=== PATIENT | female | born 1995 | race African-American/Black ===

== ENCOUNTER 2018-08-20 16:22 | Emergency (ER) | payer OTHER ==
--- NOTE | 2018-08-20 16:48 | PDOC ---
Rapid Medical Evaluation Time Seen by Provider: 08/20/18 16:46 Medical Evaluation: Allergies Allergy/AdvReac Type Severity Reaction Status Date / Time No Known Allergies Allergy Verified 08/20/18 16:45 08/20/18 16:46 I have performed a brief in-person evaluation of this patient. The patient presents with a chief complaint of:, ~10 weeks w/ no issues w/ preg so far, here w/ n/v x 2 weeks and now sent in by her OB for IVF. Pt states she was prescribed rx for anti-emetics today but hasn't filled it yet Pertinent physical exam findings:stable I have ordered the following:labs The patient will proceed to the ED for further evaluation. Discharge Disposition - Diagnosis Hyperemesis - Referrals - Patient Instructions - Post Discharge Activity
[2018-08-20 16:51] VITALS: BP 130/58; PULSE 80; TEMP 98.1; BMI 22.6
[2018-08-20] MEDS ORDERED: ONDANSETRON 4 MG/2 ML VIAL IVPUSH ONE (17:26)
[2018-08-20] MEDS ORDERED: SODIUM CHLORIDE 1,000 ML IV STA ×2 (17:26→19:34)
--- NOTE | 2018-08-20 17:30 | PDOC ---
History of Present Illness - General Chief Complaint: Nausea/Vomiting Stated Complaint: DOCTOR SENT PATIENT Time Seen by Provider: 08/20/18 16:46 History Source: Patient Exam Limitations: No Limitations - History of Present Illness Initial Comments: 08/20/18 17:39 Patient is a 23-year-old female, currently 10 weeks who presents to the ER for hyperemesis. Patient states she's been vomiting approximately 10 times day for the last 2 weeks. She was seen by her GIFT SHOP CLERK today who referred her to the ER for lab work and anti-enemics given her hyperemesis. Patient is to nausea at this time. Denies fever, chills, abdominal pain, shortness of breath, difficulty breathing, frequency, urgency and hematuria. Patient states she has not had any vaginal bleeding. Past History - Travel Traveled outside of the country in the last 30 days: No Close contact w/someone who was outside of country & ill: No - Past Medical History Allergies/Adverse Reactions: Allergies Allergy/AdvReac Type Severity Reaction Status Date / Time No Known Allergies Allergy Verified 08/20/18 16:45 COPD: No - Immunization History Immunization Up to Date: Yes - Suicide/Smoking/Psychosocial Hx Smoking History: Never smoked Hx Alcohol Use: No Drug/Substance Use Hx: No Review of Systems - Review of Systems Able to Perform ROS?: Yes Comments:: 08/20/18 17:40 CONSTITUTIONAL: Absent: fever, chills, diaphoresis, generalized weakness, malaise, loss of appetite HEENT: Absent: rhinorrhea, nasal congestion, throat pain, throat swelling, difficulty swallowing, mouth swelling, ear pain, eye pain, visual Changes CARDIOVASCULAR: Absent: chest pain, loss of consciousness, palpitations, irregular heart rate, peripheral edema RESPIRATORY: Absent: cough, shortness of breath, dyspnea with exertion, orthopnea, wheezing, stridor, hemoptysis GASTROINTESTINAL: Present: nausea and vomiting Absent: abdominal pain, abdominal distension, diarrhea, constipation, melena, hematochezia GENITOURINARY: Absent: dysuria, frequency, urgency, hesitancy, hematuria, flank pain, genital pain MUSCULOSKELETAL: Absent: myalgia, arthralgia, joint swelling SKIN: Absent: rash, itching, pallor HEMATOLOGIC/IMMUNOLOGIC: Absent: easy bleeding, easy bruising, lymphadenopathy, frequent infections ENDOCRINE: Absent: unexplained weight gain, unexplained weight loss, heat intolerance, cold intolerance NEUROLOGIC: Absent: headache, focal weakness or paresthesias, dizziness, unsteady gait, seizure, mental status changes, bladder or bowel incontinence PSYCHIATRIC: Absent: anxiety, depression, suicidal or homicidal ideation, hallucinations. Is the patient limited Romanian proficient: No *Physical Exam - Vital Signs Last Vital Signs Temp Pulse Resp BP Pulse Ox 98.1 F 80 18 130/58 L 100 08/20/18 16:46 08/20/18 16:46 08/20/18 16:46 08/20/18 16:46 08/20/18 16:46 - Physical Exam Comments: 08/20/18 17:40 GENERAL: Well developed, well nourished. Awake and alert. No acute distress. HEENT: Normocephalic, atraumatic. PERRLA, EOMI. No conjunctival pallor. Sclera are non- icteric. Moist mucous membranes. Oropharynx is clear. NECK: Supple. Full ROM. No JVD. Carotid pulses 2+ and symmetric, without bruits. No thyromegaly. No lymphadenopathy. CARDIOVASCULAR: Regular rate and rhythm. No murmurs, rubs, or gallops. Distal pulses are 2+ and symmetric. PULMONARY: No evidence of respiratory distress. Lungs clear to auscultation bilaterally. No wheezing, rales or rhonchi. ABDOMINAL: Soft. Non-tender. Non-distended. No rebound or guarding. No organomegaly. Normoactive bowel sounds. MUSCULOSKELETAL Normal range of motion at all joints. No bony deformities or tenderness. No CVA tenderness. EXTREMITIES: No cyanosis. No clubbing. No edema. No calf tenderness. SKIN: Warm and dry. Normal capillary refill. No rashes. No jaundice. NEUROLOGICAL: Alert, awake, appropriate. Cranial nerves 2-12 intact. No deficits to light touch and temperature in face, upper extremities and lower extremities. No motor deficits in the in face, upper extremities and lower extremities. Normoreflexic in the upper and lower extremities. Normal speech. Toes are down- going bilaterally. Gait is normal without ataxia. PSYCHIATRIC: Cooperative. Good eye contact. Appropriate mood and affect. Moderate Sedation - Procedure Monitoring Vital Signs: Procedure Monitoring Vital Signs Temperature 98.1 F 08/20/18 16:46 Pulse Rate 80 08/20/18 16:46 Respiratory Rate 18 08/20/18 16:46 Blood Pressure 130/58 L 08/20/18 16:46 O2 Sat by Pulse Oximetry (%) 100 08/20/18 16:46 Medical Decision Making - Medical Decision Making 08/20/18 17:41 Patient is a 23-year-old female, who presents to the ER today for hyperemesis. On exam patient with no abdominal tenderness. Denies vaginal bleeding We'll order basic labs, IV fluids and Zofran for symptomatic treatment. Reevaluate *DC/Admit/Observation/Transfer Diagnosis at time of Disposition: Hyperemesis - Referrals - Patient Instructions - Post Discharge Activity
[2018-08-20] MEDS ORDERED: ONDANSETRON 4 MG/2 ML VIAL ONE (18:29)
[2018-08-20 18:53] LABS: BASO % 0.5 % (0-2.0); EOS % 0.5 % (0-4.5); HEMATOCRIT 37.5 % (32.4-45.2); HEMOGLOBIN 12.9 GM/dL (10.7-15.3); LYMPH % 23.7 % (8-40); MCH 29.9 pg (25.7-33.7); MCHC 34.4 g/dl (32.0-36.0); MEAN CELL VOLUME 87.1 fl (80-96); MONO % 7.5 % (3.8-10.2); NEUT % 67.8 % (42.8-82.8); PLATELET COUNT 175 K/MM3 (134-434); RBC 4.31 M/mm3 (3.60-5.2); RDW 13.6 % (11.6-15.6); WHITE BLOOD COUNT 9.5 K/mm3 (4.0-10.0)
[2018-08-20 19:48] LABS: ALBUMIN 4.3 g/dl (3.4-5.0); ALK PHOS 59 U/L (45-117); ANION GAP 9 MMOL/L (8-16); BILIRUBIN,TOTAL 0.5 mg/dL (0.2-1); BLOOD UREA NITROGEN 4 mg/dL (7-18); CALCIUM 9.8 mg/dL (8.5-10.1); CHLORIDE 105 mmol/L (98-107); CO2 22 mmol/L (21-32); CREATININE 0.4 mg/dL (0.55-1.3); GLUCOSE,RANDOM 79 mg/dL (74-106); POTASSIUM 3.6 mmol/L (3.5-5.1); SGOT/AST 14 U/L (15-37); SGPT/ALT 15 U/L (13-61); SODIUM 136 mmol/L (136-145); TOT PROT 7.1 g/dl (6.4-8.2)
--- NOTE | 2018-08-20 20:09 | PDOC ---
*Physical Exam - Vital Signs Last Vital Signs Temp Pulse Resp BP Pulse Ox 98.1 F 80 18 130/58 L 100 08/20/18 16:46 08/20/18 16:46 08/20/18 16:46 08/20/18 16:46 08/20/18 16:46 ED Treatment Course - LABORATORY CBC & Chemistry Diagram: 08/20/18 18:40 08/20/18 18:40 - ADDITIONAL ORDERS Additional order review: Laboratory Results 08/20/18 18:40 Sodium 136 Potassium 3.6 Chloride 105 Carbon Dioxide 22 Anion Gap 9 BUN 4 L Creatinine 0.4 L Creat Clearance w eGFR > 60 Random Glucose 79 Calcium 9.8 Total Bilirubin 0.5 AST 14 L ALT 15 Alkaline Phosphatase 59 Total Protein 7.1 Albumin 4.3 08/20/18 18:40 RBC 4.31 MCV 87.1 MCHC 34.4 RDW 13.6 MPV 10.0 Neutrophils % 67.8 Lymphocytes % 23.7 Monocytes % 7.5 Eosinophils % 0.5 Basophils % 0.5 - Medications Given in the ED: ED Medications Discontinued Medications Generic Name Dose Route Start Last Admin Trade Name Freq PRN Reason Stop Dose Admin Sodium Chloride 1,000 mls @ 1,000 mls/hr 08/20/18 17:26 08/20/18 18:40 Normal Saline - IV 08/20/18 18:25 1,000 mls/hr ASDIR STA Administration Ondansetron HCl 4 mg 08/20/18 17:26 08/20/18 18:40 Zofran Injection IVPUSH 08/20/18 17:27 4 mg ONCE ONE Administration Medical Decision Making - Medical Decision Making Patient signed out to me by GINNY Theodore Labs reviewed and unremarkable Patient appears well and tolerating PO Patient already had nausea meds prescribed by her VALVE LAPPER today (unable to recall names; one was Vitamin B6); states will pick them up Stable for d/c 08/20/18 20:06 *DC/Admit/Observation/Transfer Diagnosis at time of Disposition: Hyperemesis - Discharge Dispostion Disposition: HOME Condition at time of disposition: Stable Decision to Admit order: No - Referrals - Patient Instructions Printed Discharge Instructions: DI for Hyperemesis Gravidarum Additional Instructions: Thank you for choosing [facility]. It was a pleasure taking care of you. Please take the nausea meds prescribed by your FINAL FINISHER FORGING DIES Continue follow-up with your FINAL FINISHER FORGING DIES Return to the Emergency Department if your symptoms worsen or persist, you have fever, shortness of breath, chest pain, severe abdominal pain, vomiting, vaginal bleeding or other concerning symptoms. - Post Discharge Activity
== END 2018-08-20 21:00 | disposition home or self-care (01) ==
LOC: JER 16:22
PROC: 3E0337Z Introduction of Electrolytic and Water Balance Substance into Peripheral Vein, Percutaneous Approach (ICD-10-PCS; principal; 2018-08-20)
DX: O26.891 Other specified pregnancy related conditions, first trimester (principal); O21.0 Mild hyperemesis gravidarum; Z3A.10 10 weeks gestation of pregnancy
CPT/HCPCS: 36415; 80053; 85025; 99283-25; J7030

== ENCOUNTER 2018-09-05 13:44 | Emergency (ER) | payer OTHER ==
[2018-09-05 13:54] VITALS: BP 107/68; PULSE 94; TEMP 98.3; BMI 21.9
--- NOTE | 2018-09-05 14:16 | PDOC ---
History of Present Illness - General Chief Complaint: Nausea/Vomiting Stated Complaint: SENT BY PCP Time Seen by Provider: 09/05/18 14:16 - History of Present Illness Initial Comments: 09/05/18 15:05 23 year old woman with no past medical history A0, LNMP 06/06/18 who presents with nbnb vomiting for 1 month that occurs throughout the day, sometimes worse in the morning and every time after she eats. She reports that she can sometimes vomit 15x a day. She saw her OBGYN Dr. Ballesteros yesterday and had an ultrasound done, but she was told to come to the ED for hydration. She given a prescription for Reglan but reports that the medication did not help her. She denies fevers, headaches, diarrhea, abdominal pain, dysuria, hematuria , back pain, vaginal bleeding, vaginal discharge. She has no other complaints at bedside. 09/05/18 15:05 Past History - Past Medical History Allergies/Adverse Reactions: Allergies Allergy/AdvReac Type Severity Reaction Status Date / Time No Known Allergies Allergy Verified 08/20/18 16:45 Home Medications: Ambulatory Orders Doxylamine Succinate/Vit B6 [Ashlyn Tapia 10-10 mg Tablet] 1 each PO DAILY #30 tablet. 09/05/18 COPD: No - Reproductive History (#): 1 Para: 0 Therapeutic (s) & number: No Spontaneous : 0 - Immunization History Immunization Up to Date: Yes - Suicide/Smoking/Psychosocial Hx Smoking History: Never smoked Hx Alcohol Use: No Drug/Substance Use Hx: No *Physical Exam - Vital Signs Last Vital Signs Temp Pulse Resp BP Pulse Ox 98.3 F 94 H 18 107/68 100 09/05/18 13:52 09/05/18 13:52 09/05/18 13:52 09/05/18 13:52 09/05/18 13:52 - Physical Exam Comments: 09/05/18 15:15 unremarkable Moderate Sedation - Procedure Monitoring Vital Signs: Procedure Monitoring Vital Signs Temperature 98.3 F 09/05/18 13:52 Pulse Rate 94 H 09/05/18 13:52 Respiratory Rate 18 09/05/18 13:52 Blood Pressure 107/68 09/05/18 13:52 O2 Sat by Pulse Oximetry (%) 100 09/05/18 13:52 ED Treatment Course - LABORATORY CBC & Chemistry Diagram: 09/05/18 14:30 09/05/18 14:30 Medical Decision Making - Medical Decision Making 09/05/18 15:15 ED Course: consider molar vs iup vs ectopic cbc, cmp, tvus, beta hcg *DC/Admit/Observation/Transfer Diagnosis at time of Disposition: Vomiting - Discharge Dispostion Disposition: HOME Condition at time of disposition: Stable Decision to Admit order: No - Referrals Referrals: Bel Donaldson [Primary Care Provider] - - Patient Instructions Printed Discharge Instructions: DI for Vomiting -- Adult Additional Instructions: You were seen in the ED for complaints of vomiting in . In the ED you were evaluated with labwork and imaging. Your results showed 13 week 4 days intrauterine with FHR 144bpm. There does not appear to be an acute need for immediate hospitalization. You are advised to follow up with your Primary Care Physician within 1 week. You were given a prescription for Diclegis anti-nausea medication and are advised to take medications as prescribed. Return to the ED immediately if you experience worsening nausea or vomiting, dizziness, lethargy, abdominal pain, vaginal bleeding or discharge or fevers. - Post Discharge Activity
[2018-09-05] MEDS ORDERED: METOCLOPRAMIDE HCL INJECTION 10 MG/2 ML VIAL IVPUSH ONE (14:17)
[2018-09-05] MEDS ORDERED: SODIUM CHLORIDE 1,000 ML IV SCH (14:30)
[2018-09-05] MEDS ORDERED: METOCLOPRAMIDE HCL INJECTION 10 MG/2 ML VIAL ONE (14:33)
--- NOTE | 2018-09-05 15:14 | PDOC ---
Attending Attestation - HPI HPI: 09/05/18 15:41 The patient is a 23-year-old female A0, currently, 13 weeks , with no significant past medical history presents to the emergency department with nausea and vomiting. The patient reports shes been having one month of nausea and NBNB vomiting, that's aggravated after eating and at times worse in the morning. The patient reports follow up with Dr. Ballesteros (DIET SUPERVISOR), where she was told to follow up at the ER for hydration. The patient reports she was prescribed Reglan, reports taking the medication, without relief. Denies fever, chills, abdominal pain, urinary symptoms, vaginal bleeding or discharge. Allergies: NKDA DIET SUPERVISOR: Dr. Ballesteros. - Physicial Exam PE: 09/05/18 15:24 GENERAL: The patient is in no acute distress. HEAD: Normal with no signs of trauma. EYES: PERRLA, EOMI, sclera anicteric, conjunctiva clear. ENT: Ears normal, nares patent, oropharynx clear without exudates. Moist mucous membranes. NECK: Normal range of motion, supple without lymphadenopathy, JVD, or masses. LUNGS: Breath sounds equal, clear to auscultation bilaterally. No wheezes, and no crackles. HEART:Regular rate and rhythm, normal S1 and S2 without murmur, rub or gallop. ABDOMEN: Soft, nontender, normoactive bowel sounds. No guarding, no rebound. No masses palpable. EXTREMITIES: Normal range of motion, no edema. No clubbing or cyanosis. No erythema, or tenderness. NEUROLOGICAL: Cranial nerves II through XII grossly intact. Normal speech. No focal neurological deficits. MUSCULOSKELETAL: Back non-tender to palpation, no CVA tenderness SKIN: Warm, Dry, normal turgor, no rashes or lesions noted. - Medical Decision Making 09/05/18 15:42 Documentation prepared by Flor Ochoa, acting as medical csr for Princess Pena MD. <Flor Ochoa - Last Filed: 09/05/18 15:41> - Resident Resident Name: Teresita Atkins - ED Attending Attestation I have performed the following: I have examined & evaluated the patient, The case was reviewed & discussed with the resident, I agree w/resident's findings & plan, Exceptions are as noted - Medical Decision Making 09/05/18 15:47 23 yo F presenting to the ER with nausea and vomiting Seen by OB yesterday where assessment of was reportedly normal Pt was given reglan which she states has not helped No fevers or chills No diarrhea Likely Hyperemesis, possibly biliary colic or gastroenteritis Will do: Labs US ICF Reglan Consider D51/2 NS 09/05/18 15:53 Laboratory Tests 09/05/18 09/05/18 14:30 14:30 WBC 9.5 Hgb 13.3 Hct 39.0 Plt Count 189 Sodium 134 L Potassium 3.1 L Chloride 102 Carbon Dioxide 23 BUN 4 L Creatinine 0.4 L Beta HCG, Quant [id number] Major <Princess Pena - Last Filed: 09/06/18 09:28>
[2018-09-05 15:34] LABS: BASO % 0.3 % (0-2.0); EOS % 0.2 % (0-4.5); HEMOGLOBIN 13.3 GM/dL (10.7-15.3); LYMPH % 17.7 % (8-40); MCH 29.7 pg (25.7-33.7); MCHC 34.1 g/dl (32.0-36.0); MEAN PLT VOLUME 10.4 fl (7.5-11.1); MONO % 7.2 % (3.8-10.2); NEUT % 74.6 % (42.8-82.8); PLATELET COUNT 189 K/MM3 (134-434); RBC 4.48 M/mm3 (3.60-5.2); RDW 13.3 % (11.6-15.6); WHITE BLOOD COUNT 9.5 K/mm3 (4.0-10.0)
[2018-09-05 15:48] LABS: ALBUMIN 4.3 g/dl (3.4-5.0); ALK PHOS 61 U/L (45-117); ANION GAP 9 MMOL/L (8-16); BILIRUBIN,TOTAL 0.8 mg/dL (0.2-1); BLOOD UREA NITROGEN 4 mg/dL (7-18); CALCIUM 9.2 mg/dL (8.5-10.1); CHLORIDE 102 mmol/L (98-107); CO2 23 mmol/L (21-32); CREATININE 0.4 mg/dL (0.55-1.3); GLUCOSE,RANDOM 84 mg/dL (74-106); POTASSIUM 3.1 mmol/L (3.5-5.1); SGOT/AST 25 U/L (15-37); SGPT/ALT 28 U/L (13-61); SODIUM 134 mmol/L (136-145); TOT PROT 7.6 g/dl (6.4-8.2)
[2018-09-05] MEDS ORDERED: POTASSIUM CHLORIDE TABS 10 MEQ TABLET.ER (FP) PO ONE ×2 (16:35→18:18)
[2018-09-05] MEDS ORDERED: POTASSIUM CHLORIDE TABS 20 MEQ TABLET.ER (FP) PO ONE (17:53)
[2018-09-05] MEDS ORDERED: DEXTROSE 5%-NORMAL SALINE 1,000 ML IV SCH (18:00)
== END 2018-09-05 18:58 | disposition home or self-care (01) ==
LOC: JER 13:44
PROC: 3E0337Z Introduction of Electrolytic and Water Balance Substance into Peripheral Vein, Percutaneous Approach (ICD-10-PCS; principal; 2018-09-05)
DX: O26.891 Other specified pregnancy related conditions, first trimester (principal); O21.0 Mild hyperemesis gravidarum; Z3A.13 13 weeks gestation of pregnancy
CPT/HCPCS: 36415; 76801-TC; 80053; 84702; 85025; 99281-25; J7030

== ENCOUNTER 2018-09-17 21:28 | Emergency (ER) | payer OTHER ==
[2018-09-17] MEDS ORDERED: SODIUM CHLORIDE 0.9% 500 ML INFUS.BAG IV ONE (21:55)
[2018-09-17] MEDS ORDERED: ONDANSETRON 4 MG/2 ML VIAL IVPB ONE (21:55)
[2018-09-17 21:58] VITALS: BP 90/62; TEMP 97.6
--- NOTE | 2018-09-17 21:58 | PDOC ---
Rapid Medical Evaluation Chief Complaint: Nausea/Vomiting Time Seen by Provider: 09/17/18 21:54 Medical Evaluation: Allergies Allergy/AdvReac Type Severity Reaction Status Date / Time No Known Allergies Allergy Verified 08/20/18 16:45 09/17/18 21:55 23 year old female 15 weeks unable to tolerate anything by mouth due to hyperemesis. denies abdominal pain, fever/ chills, urianry symptoms. Pe: patient alert tachycardic, dry mucosa A; dehydration likely hyperemesis gravidum P; labs IVF zofran patient to the ER for further management of care. Discharge Disposition - Diagnosis Hyperemesis, Vomiting - Referrals - Patient Instructions - Post Discharge Activity
[2018-09-17] MEDS ORDERED: DEXTROSE 5%-LACTATED RINGERS 1,000 ML IV SCH (22:30)
[2018-09-17] MEDS ORDERED: ONDANSETRON 4 MG/2 ML VIAL ONE (22:40)
--- NOTE | 2018-09-17 22:40 | PDOC ---
History of Present Illness - General Chief Complaint: Nausea/Vomiting Stated Complaint: NAUSEA Time Seen by Provider: 09/17/18 21:54 - History of Present Illness Initial Comments: Madison Soto is an otherwise health 23yo woman who presents with severe nausea and vomiting for "months." She states that she has been unable to keep anything down for multiple days despite using antiemetic medications at home. Per Ms Soto, she follows with Dr Ballesteros who recommended a "zofran pump" but she is concerned about side effects. She reports that she has tried multiple medications at home without relief of her symptoms including B6/doxylamine and reglan. She reports that she has lost approximately 25lb during her due to persistent vomiting. The vomiting is non-bloody, non-bilious and unchanged from previous episodes. She denies any recent change in bowel habits, fever/chills, abdominal pain, vaginal discharge or vaginal bleeding. She most recently saw her OB, Dr Ballesteros, about 2 weeks ago and was seen in the ED on 09/05 with similar symptoms. Past History - Past Medical History Allergies/Adverse Reactions: Allergies Allergy/AdvReac Type Severity Reaction Status Date / Time No Known Allergies Allergy Verified 09/17/18 21:58 Home Medications: Ambulatory Orders Doxylamine Succinate/Vit B6 [Ashlyn Tapia 10-10 mg Tablet] 1 each PO DAILY #30 tablet. 09/05/18 COPD: No - Reproductive History (#): 1 Para: 0 Therapeutic (s) & number: No Spontaneous : 0 - Immunization History Immunization Up to Date: Yes - Suicide/Smoking/Psychosocial Hx Smoking History: Never smoked Have you smoked in the past 12 months: No Information on smoking cessation initiated: No Hx Alcohol Use: No Drug/Substance Use Hx: No Review of Systems - Review of Systems Comments:: General: No fevers, no chills, +recent weight loss approx 25lb, no malaise HEENT: No changes in vision, no changes in hearing, no congestion, no sore throat CV: No chest pain, no palpitations, no LE edema Pulm: No SOB, no cough, no wheezing GI: +frequent nausea/vomiting. No change in bowel habits, no melena : No frequency, no urgency, no dysuria Musc: No back pain, no joint swelling, no recent injury Skin: No rash, no lesions, no erythema Endo: No excessive thirst, no heat/cold intolerance Heme: No unusual bruising or bleeding, no swollen glands Neuro: No syncope, no numbness/tingling, no focal weakness Vasc: No claudication Psych: No recent change in mood, no SI or HI *Physical Exam - Vital Signs Last Vital Signs Temp Pulse Resp BP Pulse Ox 97.6 F 146 H 24 H 90/62 100 09/17/18 21:56 09/17/18 21:56 09/17/18 21:56 09/17/18 21:56 09/17/18 21:56 - Physical Exam Comments: General: Comfortable, no acute distress HEENT: PERRL, EOMI, MMM, voice normal, normal neck ROM, no LAD Cards: RRR, no murmur appreciated Pulm: Comfortable on room air, clear to auscultation bilaterally Abd: Soft, nontender, nondistended. Not obviously . Ext: Atraumatic. No LE edema. ROM intact. Strength 5/5 and equal bilaterally Vasc: Extremities WWP Skin: Normal color, no rashes or lesions Neuro: A&Ox3, CN grossly intact, normal speech, motor/sensory grossly intact and symmetric Psych: Mood appropriate to situation Moderate Sedation - Procedure Monitoring Vital Signs: Procedure Monitoring Vital Signs Temperature 97.6 F 09/17/18 21:56 Pulse Rate 146 H 09/17/18 21:56 Respiratory Rate 24 H 09/17/18 21:56 Blood Pressure 90/62 09/17/18 21:56 O2 Sat by Pulse Oximetry (%) 100 09/17/18 21:56 ED Treatment Course - LABORATORY CBC & Chemistry Diagram: 09/17/18 22:30 09/17/18 22:30 Medical Decision Making - Medical Decision Making 09/17/18 22:37 Madison Soto is an otherwise healthy 23yo woman at 15wks gestation who presents with tachycardia and numerous episodes of nausea/vomiting. She states that she has had hyperemesis throughout her , but she feels worse than normal today and has been unable keep anything down. - Afebrile, no other symptoms than n/v for which she has been seen previously. Tachycardia most likely due to dehydration. Will check EKG - Will give 1L D5-LR bolus, zofran for symptoms. CBC, CMP, mag, phos, UA for evaluation - IUP previously confirmed at previous visit 09/17/18 23:50 - EKG completed, shows NSR w/ HR 93. No abnormalities - Labs reviewed. Notable for potassium 2.9. Will replete orally - Reports continued nausea. States she vomited in the ED; however her nurse reports seeing clear saliva in her emesis bag but no vomiting. Will give reglan IV for nausea with 25mg IV benedryl 09/18/18 01:38 - Additional IV potassium ordered for repletion. - Pt sleeping comfortably. Will reassess when IV potassium is completed. 09/18/18 04:03 - Feels better after reglan, zofran, benadryl - Was able to tolerate apple juice in the ED without additional emesis - Will d/c home with OB follow up. Discussed with Dr Pineda. Buffy Cisneros PGY1 *DC/Admit/Observation/Transfer Diagnosis at time of Disposition: Vomiting - Discharge Dispostion Disposition: HOME Condition at time of disposition: Stable Decision to Admit order: No - Referrals Referrals: Bel Donaldson [Primary Care Provider] - Elaina Ballesteros DO [Staff Physician] - - Patient Instructions Printed Discharge Instructions: DI for Hyperemesis Gravidarum Additional Instructions: Discharge Instructions: - You were seen in the emergency department for continued vomiting during . Your symptoms improved with medications and IV fluids - Continue to take all of your prescribed medications at home. You indicated that you have been given several medications to try at home. You may wish to check with your manager secondary to see if you can take these medications at the same time if you are not having improvement in your symptoms from using only one. - Make sure you are staying hydrated. Taking small sips throughout the day can be more effective and easier to tolerate than drinking large glasses all at once - Make an appointment to follow up with your manager secondary within the next 1-2 days if you have continued nausea/vomiting. - Seek medical care if you are unable to tolerate any food or drinks by mouth, if you stop urinating, you become lightheaded, or you have any medical emergency., - Post Discharge Activity
[2018-09-17 22:41] LABS: BASO % 0.5 % (0-2.0); EOS % 0.4 % (0-4.5); HEMATOCRIT 44.1 % (32.4-45.2); HEMOGLOBIN 15.3 GM/dL (10.7-15.3); MCH 29.9 pg (25.7-33.7); MCHC 34.6 g/dl (32.0-36.0); MEAN CELL VOLUME 86.5 fl (80-96); MEAN PLT VOLUME 9.6 fl (7.5-11.1); MONO % 7.5 % (3.8-10.2); NEUT % 75.6 % (42.8-82.8); PLATELET COUNT 205 K/MM3 (134-434); RDW 13.5 % (11.6-15.6); WHITE BLOOD COUNT 8.6 K/mm3 (4.0-10.0)
[2018-09-17 22:59] LABS: MAGNESIUM 2.1 mg/dL (1.8-2.4); PHOSPHOROUS 2.9 mg/dL (2.5-4.9)
[2018-09-17 23:05] LABS: ALBUMIN 4.6 g/dl (3.4-5.0); ALK PHOS 71 U/L (45-117); ANION GAP 12 MMOL/L (8-16); BILIRUBIN,TOTAL 0.6 mg/dL (0.2-1); BLOOD UREA NITROGEN 3 mg/dL (7-18); CALCIUM 9.7 mg/dL (8.5-10.1); CHLORIDE 98 mmol/L (98-107); CO2 25 mmol/L (21-32); CREATININE 0.5 mg/dL (0.55-1.3); GLUCOSE,RANDOM 94 mg/dL (74-106); LIPASE 197 U/L (73-393); SGOT/AST 44 U/L (15-37); SGPT/ALT 41 U/L (13-61); SODIUM 135 mmol/L (136-145); TOT PROT 8.1 g/dl (6.4-8.2)
--- NOTE | 2018-09-17 23:06 | PDOC ---
Attending Attestation - HPI HPI: 09/18/18 00:03 The patient is a 23 year old female( , 15 weeks ) with no significant past medical history who presents to the emergency department with nausea and hyperemesis since earlier today. The patient denies any other symptoms or complaints. <Le Santana - Last Filed: 09/18/18 00:03> - Resident Resident Name: Buffy Cisneros - ED Attending Attestation I have performed the following: I have examined & evaluated the patient, The case was reviewed & discussed with the resident, I agree w/resident's findings & plan, Exceptions are as noted - Physicial Exam PE: 09/17/18 23:05 Patient is awake and alert, well-nourished, tachycardic and borderline hypotensive on arrival. 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 Initial evaluation patient noted to be borderline hypotensive and tachycardic. I suspect hypovolemia. Sepsis is unlikely at this time. We'll administer D5 LR, we'll administer Zofran for antiemesis. We'll obtain CBC/CMP/magnesium/UA. Will reassess. 09/18/18 00:38 Patient resting comfortably. Heart rate has decreased from 146 to 93. Potassium is noted to be 2.9. There is no evidence of QTC prolongation EKG. We'll continue with IV fluids and potassium supplementation by mouth. <Prosper Pineda - Last Filed: 09/18/18 00:39> Attestations - Attestations 09/18/18 00:04 Documentation prepared by Le Santana, acting as emergency medical dispatcher for Prosper Pineda MD. <Le Santana - Last Filed: 09/18/18 00:03>
[2018-09-17 23:10] LABS: POTASSIUM 2.9 mmol/L (3.5-5.1)
[2018-09-17] MEDS ORDERED: POTASSIUM CHLORIDE ORAL LIQUID 20 MEQ/15 ML PO ONE (23:22)
[2018-09-17] MEDS ORDERED: METOCLOPRAMIDE HCL INJECTION 10 MG/2 ML VIAL IVPUSH ONE (23:56)
[2018-09-18] MEDS ORDERED: POTASSIUM CHLORIDE ORAL LIQUID 20 MEQ/15 ML ONE (00:09)
[2018-09-18] MEDS ORDERED: KCL 10 MEQ IVPB 10 MEQ/100 ML INFUS.BAG IVPB ONE ×2 (01:21→01:46)
[2018-09-18] MEDS: KCL 10 MEQ IVPB 10 MEQ/100 ML INFUS.BAG IVPB SCH ×2 (01:26→02:25)
[2018-09-18 02:50] LABS: URINE APPEARANCE CLEAR; URINE BILIRUBIN NEGATIVE (<2.0 mg/dL); URINE COLOR LTYELLOW; URINE GLUCOSE (UA) 3+ (NEGATIVE); URINE KETONE 2+ (NEGATIVE); URINE LEUK ESTERASE NEGATIVE (NEGATIVE); URINE NITRITE NEGATIVE (NEGATIVE); URINE PROTEIN NEGATIVE (NEGATIVE); URINE UROBILINOGEN NEGATIVE mg/dL (0.2-1.0)
[2018-09-18 04:24] VITALS: PULSE 85
--- NOTE | 2018-09-18 14:01 | EKG ---
Test Reason : Blood Pressure : / mmHG Vent. Rate : 093 BPM Atrial Rate : 093 BPM P-R Int : 152 ms QRS Dur : 080 ms QT Int : 346 ms P-R-T Axes : 072 081 008 degrees QTc Int : 430 ms NORMAL SINUS RHYTHM POSSIBLE LEFT ATRIAL ENLARGEMENT BORDERLINE ECG NO PREVIOUS ECGS AVAILABLE Confirmed by CATHY HURT, DANYEL ([id number]) on 09/18/2018 2:01:35 PM Referred By: Confirmed By:DANYEL MORGAN MD
== END 2018-09-18 04:24 | disposition home or self-care (01) ==
LOC: JER 21:28
PROC: 3E0337Z Introduction of Electrolytic and Water Balance Substance into Peripheral Vein, Percutaneous Approach (ICD-10-PCS; principal; 2018-09-17)
PROC: 3E0337Z Introduction of Electrolytic and Water Balance Substance into Peripheral Vein, Percutaneous Approach (ICD-10-PCS; 2018-09-17)
PROC: 3E033GC Introduction of Other Therapeutic Substance into Peripheral Vein, Percutaneous Approach (ICD-10-PCS; 2018-09-17)
PROC: 3E033GC Introduction of Other Therapeutic Substance into Peripheral Vein, Percutaneous Approach (ICD-10-PCS; 2018-09-17)
PROC: 3E033GC Introduction of Other Therapeutic Substance into Peripheral Vein, Percutaneous Approach (ICD-10-PCS; 2018-09-17)
DX: O26.892 Other specified pregnancy related conditions, second trimester (principal); O21.1 Hyperemesis gravidarum with metabolic disturbance; E87.6 Hypokalemia; Z3A.15 15 weeks gestation of pregnancy
CPT/HCPCS: 36415; 80053; 81003; 83690; 83735; 84100; 85025; 93005; 93010; 99282-25

== ENCOUNTER 2018-10-10 22:18 | Emergency (ER) | payer OTHER ==
[2018-10-10 22:29] VITALS: BP 108/63; PULSE 87; TEMP 98.3; BMI 21.2
[2018-10-10] MEDS ORDERED: METOCLOPRAMIDE HCL INJECTION 10 MG/2 ML VIAL IVPB ONE (23:09)
[2018-10-10] MEDS ORDERED: SODIUM CHLORIDE 0.9% 500 ML INFUS.BAG IV ONE (23:09)
--- NOTE | 2018-10-10 23:14 | PDOC ---
History of Present Illness - History of Present Illness Initial Comments: The pt is a 23F at 18wks w/ hyperemesis gravidum who presents w/ persistent vomiting and the addition of blood in her vomit today. She reports that the last five episodes of emesis have included both streaks of blood and clots of blood in her vomit. She endorses associated substernal/throat burning and shortness of breath. Reports that this burning is different than her typical reflux symptoms. Pt has tried PO Zofran, Reglan, and DC promethazine all with little relief of her emesis. She has not taken anything for her symptoms since yesterday. She is also not currently taking any vitamins Denies fevers/chills, [place], vision changes, abdominal pain, diarrhea, blood in her stool, dysuria, hematuria, vaginal bleeding or discharge. OBGYN: [facility] 10/10/18 23:00 <Taj Krishnan - Last Filed: 10/11/18 01:25> <Leonardo Dahl - Last Filed: 10/11/18 02:08> - General Chief Complaint: Vomiting Blood Stated Complaint: VOMITING Past History - Past Medical History COPD: No GI Disorders: Yes (Hyperemesis Gravidarum) - Reproductive History (#): 1 Para: 0 Therapeutic (s) & number: No Spontaneous : 0 - Immunization History Immunization Up to Date: Yes - Suicide/Smoking/Psychosocial Hx Smoking History: Never smoked Have you smoked in the past 12 months: No Information on smoking cessation initiated: No Hx Alcohol Use: No Drug/Substance Use Hx: No <Taj Krishnan - Last Filed: 10/11/18 01:25> <Leonardo Dahl - Last Filed: 10/11/18 02:08> - Past Medical History Allergies/Adverse Reactions: Allergies Allergy/AdvReac Type Severity Reaction Status Date / Time No Known Allergies Allergy Verified 10/10/18 23:22 Home Medications: Ambulatory Orders Doxylamine Succinate/Vit B6 [Ashlyn Tapia 10-10 mg Tablet] 1 each PO ASDIR PRN # 30 tablet. 10/11/18 Doxylamine Succinate/Vit B6 [Ashlyn Tapia 10-10 mg Tablet] 1 each PO DAILY #30 tablet. 10/11/18 Review of Systems - Review of Systems Able to Perform ROS?: Yes Comments:: GENERAL/CONSTITUTIONAL: No fever or chills. No weakness. HEAD, EYES, EARS, NOSE AND THROAT: No change in vision or hearing. No sore throat CARDIOVASCULAR: +chest burning and SOB associated w/ vomiting RESPIRATORY: Denies cough, hemoptysis GASTROINTESTINAL: No diarrhea GENITOURINARY: No dysuria, frequency, or change in urination MUSCULOSKELETAL: No joint or muscle swelling or pain. No neck or back pain SKIN: No rash NEUROLOGIC: No headache, vertigo, loss of consciousness, or change in strength/ sensation ENDOCRINE: No increased thirst. No abnormal weight change HEMATOLOGIC/LYMPHATIC: No anemia, easy bleeding, or history of blood clots ALLERGIC/IMMUNOLOGIC: No hives or skin allergy 10/10/18 23:39 Is the patient limited Yemeni proficient: No <Tja Krishnan - Last Filed: 10/11/18 01:25> *Physical Exam - Vital Signs Last Vital Signs Temp Pulse Resp BP Pulse Ox 98.3 F 87 20 108/63 100 10/10/18 22:26 10/10/18 22:26 10/10/18 22:26 10/10/18 22:26 10/10/18 22:26 - Physical Exam Comments: GENERAL: Awake, alert, and oriented to person/place/time, in no acute distress HEAD: No signs of trauma, normocephalic, atraumatic EYES: PERRLA, EOMI, sclera anicteric, conjunctiva clear ENT: Hearing grossly normal, nares patent, oropharynx clear without exudates. No uvular deviation. Moist mucosa. Dysphonia LUNGS: No distress, speaks full sentences, clear to auscultation bilaterally HEART: Regular rate and rhythm, normal S1 and S2, no murmurs appreciated, peripheral pulses normal and equal bilaterally ABDOMEN: Soft, protuberant, NTTP, normoactive bowel sounds. No guarding, no rebound EXTREMITIES: Normal inspection, Normal range of motion, no edema. No clubbing or cyanosis NEUROLOGICAL: Cranial nerves II through XII grossly intact. Normal speech, normal gait, no focal sensorimotor deficits SKIN: Warm, Dry 10/10/18 23:42 <Taj Krishnan - Last Filed: 10/11/18 01:25> - Vital Signs Last Vital Signs Temp Pulse Resp BP Pulse Ox 98.3 F 87 20 108/63 100 10/10/18 22:26 10/10/18 22:26 10/10/18 22:26 10/10/18 22:26 10/10/18 22:26 <Leonardo Dahl - Last Filed: 10/11/18 02:08> ED Treatment Course - LABORATORY CBC & Chemistry Diagram: 10/10/18 23:30 10/10/18 23:30 <Taj Krishnan - Last Filed: 10/11/18 01:25> - LABORATORY CBC & Chemistry Diagram: 10/10/18 23:30 10/10/18 23:30 - ADDITIONAL ORDERS Additional order review: Laboratory Results 10/10/18 10/10/18 23:30 23:30 Sodium 137 Potassium 3.7 Chloride 107 Carbon Dioxide 22 Anion Gap 8 BUN 2 L* Creatinine 0.2 L Creat Clearance w eGFR 444.16 Random Glucose 79 Calcium 9.0 Total Bilirubin 0.2 AST 15 ALT 15 Alkaline Phosphatase 60 Total Protein 6.6 Albumin 3.4 Blood Type A POSITIVE Antibody Screen Negative 10/10/18 23:30 RBC 4.09 MCV 87.8 MCHC 33.0 RDW 13.8 MPV 9.5 - Medications Given in the ED: ED Medications Discontinued Medications Generic Name Dose Route Start Last Admin Trade Name Stephanie PRN Reason Stop Dose Admin Diphenhydramine HCl 12.5 mg 10/10/18 23:09 10/11/18 00:39 Benadryl Injection - IVPUSH 10/10/18 23:10 12.5 mg ONCE ONE Administration Lidocaine HCl 20 ml 10/11/18 00:22 10/11/18 00:43 Xylocaine 2% Viscous Oral - MM 10/11/18 00:23 20 ml ONCE ONE Administration Metoclopramide HCl 10 mg 10/10/18 23:09 10/11/18 00:17 Reglan Injection - IVPB 10/10/18 23:10 10 mg ONCE ONE Administration Sodium Chloride 1,000 ml 10/10/18 23:09 10/11/18 00:16 Normal Saline - IV 10/10/18 23:10 1,000 ml ONCE ONE Administration <Leonardo Dahl - Last Filed: 10/11/18 02:08> Medical Decision Making - Medical Decision Making The pt is a 23F at 18wks w/ hyperemesis gravidum who presents for persistent vomiting w/ associated hematemesis today (less than 5 times) ED Course CMP, CBC, T/S Saúl Ag IVF 10/10/18 23:44 No anemia No leukocytosis 10/10/18 23:57 Lytes wnl No LOUIS LFTs wnl Pt feels improved at this time Plan for D/C w/ PCP f/u Rx for Diclegis Discharge instructions and return precautions given Pt in agreement and verbalized understanding Dispo: home 10/11/18 01:11 <Taj Krishnan - Last Filed: 10/11/18 01:25> *DC/Admit/Observation/Transfer - Discharge Dispostion Decision to Admit order: No <Taj Krishnan - Last Filed: 10/11/18 01:25> <Leonardo Dahl - Last Filed: 10/11/18 02:08> Diagnosis at time of Disposition: Hyperemesis - Discharge Dispostion Disposition: HOME Condition at time of disposition: Improved - Prescriptions Prescriptions: Doxylamine Succinate/Vit B6 [Diclegis Dr 10-10 mg Tablet] 1 each PO ASDIR PRN # 30 tablet. PRN Reason: Nausea And/Or Vomiting Doxylamine Succinate/Vit B6 [Diclegis Dr 10-10 mg Tablet] 1 each PO DAILY #30 tablet.dr - Referrals Referrals: Elaina Ballesteros DO [Staff Physician] - - Patient Instructions Printed Discharge Instructions: DI for Hyperemesis Gravidarum Additional Instructions: You were seen in the Emergency Department for evaluation of vomiting with new onset blood in vomit. Your labs were unremarkable. Review the handout provided at discharge. A prescription for Diclegis was sent to the [facility] pharmacy, take as directed. Follow up with your OBGYN within the next week. Return to the Emergency Department if you are unable to tolerate food/drink, have worsening symptoms, persistent/worsening blood in your vomit, diarrhea, fevers, or any new /concerning symptoms.
[2018-10-10 23:48] LABS: HEMATOCRIT 35.9 % (32.4-45.2); HEMOGLOBIN 11.8 GM/dL (10.7-15.3); MCH 28.9 pg (25.7-33.7); MEAN CELL VOLUME 87.8 fl (80-96); MEAN PLT VOLUME 9.5 fl (7.5-11.1); PLATELET COUNT 189 K/MM3 (134-434); RBC 4.09 M/mm3 (3.60-5.2); RDW 13.8 % (11.6-15.6); WHITE BLOOD COUNT 8.6 K/mm3 (4.0-10.0)
[2018-10-11] MEDS ORDERED: METOCLOPRAMIDE HCL INJECTION 10 MG/2 ML VIAL ONE (00:03)
[2018-10-11] MEDS ORDERED: LIDOCAINE VISCOUS 2% ORAL/TOP 20 ML UNIT-DOSE CUP MM ONE (00:22)
[2018-10-11 00:28] LABS: ALBUMIN 3.4 g/dl (3.4-5.0); ALK PHOS 60 U/L (45-117); ANION GAP 8 MMOL/L (8-16); BILIRUBIN,TOTAL 0.2 mg/dL (0.2-1); CHLORIDE 107 mmol/L (98-107); CO2 22 mmol/L (21-32); CREATININE 0.2 mg/dL (0.55-1.3); GLUCOSE,RANDOM 79 mg/dL (74-106); POTASSIUM 3.7 mmol/L (3.5-5.1); SGOT/AST 15 U/L (15-37); SGPT/ALT 15 U/L (13-61); SODIUM 137 mmol/L (136-145); TOT PROT 6.6 g/dl (6.4-8.2)
--- NOTE | 2018-10-11 00:36 | PDOC ---
Attending Attestation - HPI HPI: 10/11/18 00:37 The patient is a 23 year old female, 18 weeks , with no significant past medical history, who presents to the emergency department with multiple episodes of emesis with the last 4-5 episodes including streaks of blood and clots of blood. She reports associated throat burning and shortness of breath. The patient denies chest pain,headache and dizziness. The patient denies fever, chills, diarrhea and constipation. The patient denies dysuria, frequency, urgency and hematuria. Allergies: NKDA - Physicial Exam PE: 10/11/18 00:37 ROS: A complete review of 10 out of 10 review of systems is taken and is negative apart from what is previously mentioned below and in the HPI. Physical Exam Vitals: Triage vital signs reviewed General Appearance: No acute distress, well nourished, well developed Head: Atraumatic Eyes: Pupils equal reactive round, extraocular movement intact Neck: Supple; No nuchal rigidity Throat: (+) erythema to posterior oropharynx Chest Wall: Nontender Cardiac: Regular rate and rhythm, no murmurs, no rubs, no gallops Lungs: Clear to auscultation bilateral, good air movement bilaterally Abdomen: Soft, nondistended, normal bowel sounds, nontender to palpation Extremities: Full range of motion to all extremities, no cyanosis, clubbing, or edema Skin: Warm and dry, no rashes or lesions, no rash, no petechiae Neuro: AOX3; Cranial Nerves 2-12 grossly intact, Strength intact to all extremities, Sensation intact to all extremities, Psych: Normal mood, normal affect <Kassie De Jesus - Last Filed: 10/11/18 00:44> - Resident Resident Name: Taj Krishnan - ED Attending Attestation I have performed the following: I have examined & evaluated the patient, The case was reviewed & discussed with the resident, I agree w/resident's findings & plan, Exceptions are as noted - Medical Decision Making 10/11/18 02:08 21 years old to his progress with hyperemesis gravidarum multiple episodes of vomiting with last few episodes of blood-tinged emesis Currently feels nauseous with some mild burning throat discomfort Not actively bleeding Labs within normal limits Status post IV fluids Reglan and Benadryl and viscous lidocaine for throat discomfort patient feels much better tolerating fluids by mouth We'll discharge home with prescription for likely just Findings, need for follow-up and strict return instructions discussed with patient. <Leonardo Dahl - Last Filed: 10/11/18 02:08> Attestations - Attestations 10/11/18 00:38 Documentation prepared by Kassie De Jesus, acting as medical office clerk for Leonardo Dahl MD, <Kassie De Jesus - Last Filed: 10/11/18 00:44>
[2018-10-11] MEDS ORDERED: LIDOCAINE VISCOUS 2% ORAL/TOP 20 ML UNIT-DOSE CUP ONE (00:40)
[2018-10-11 01:16] LABS: BLOOD UREA NITROGEN 2 mg/dL (7-18)
== END 2018-10-11 01:27 | disposition home or self-care (01) ==
LOC: JER 22:18
PROC: 3E033GC Introduction of Other Therapeutic Substance into Peripheral Vein, Percutaneous Approach (ICD-10-PCS; principal; 2018-10-10)
PROC: 3E033GC Introduction of Other Therapeutic Substance into Peripheral Vein, Percutaneous Approach (ICD-10-PCS; 2018-10-10)
DX: O26.892 Other specified pregnancy related conditions, second trimester (principal); O21.0 Mild hyperemesis gravidarum; Z3A.18 18 weeks gestation of pregnancy
CPT/HCPCS: 36415; 80053; 85027; 86850; 86900; 86901; 99284-25

== ENCOUNTER 2019-03-02 14:22 | Inpatient (IN) | payer OTHER ==
[2019-03-02] MEDS ORDERED: BUTORPHANOL TARTRATE 1 MG/ML VIAL IVPB ONE (15:49)
[2019-03-02] MEDS ORDERED: PROMETHAZINE HCL 25 MG/1 ML VIAL IVPUSH ONE (15:49)
--- NOTE | 2019-03-02 15:56 | HP ---
Past Medical History - Admission Chief Complaint: leaking fluid since 1 am History of Present Illness: 23 y/o p0 female with SIUP at 38.3 weeks here with c/o leaking fluid since 1 am. complicated by hyperemesis. GBS neg, HIV neg. No VB, occasional cramps/ctx. +FM. History Source: Patient, Medical Record Limitations to Obtaining History: No Limitations - Past Medical History Cardiovascular: No: HTN Pulmonary: No: Asthma, COPD Gastrointestinal: No: GERD Hepatobiliary: No: Hepatitis B, Hepatitis C Renal/: No: UTI Reproductive: No: Ectopic ...: 1 ...EDC by Sono: 03/13/19 Heme/Onc: Yes: Anemia Infectious Disease: No: HIV, MRSA, STD's Psych: No: Anxiety, Bipolar, Depression - Past Surgical History Past Surgical History: Yes: None Hx Myomectomy: No Hx Transabdominal Cerclage: No - Smoking History Smoking history: Never smoked Have you smoked in the past 12 months: No - Alcohol/Substance Use Hx Alcohol Use: No - Social History ADL: Independent History of Recent Travel: No Home Medications - Allergies Allergies/Adverse Reactions: Allergies Allergy/AdvReac Type Severity Reaction Status Date / Time No Known Allergies Allergy Verified 03/02/19 15:48 - Home Medications Home Medications: Ambulatory Orders Ferrous Sulfate [Feosol] 325 mg PO TID 02/03/19 Vits96/Iron Fum/Folic [ Tablet] 1 each PO DAILY 02/03/19 Physical Exam - Maternity Vital Signs: Vital Signs Temperature 98.3 F 03/02/19 15:32 Pulse Rate 76 03/02/19 15:32 Respiratory Rate 18 03/02/19 15:32 Blood Pressure 127/73 03/02/19 15:32 O2 Sat by Pulse Oximetry (%) Constitutional: Yes: Well Nourished, No Distress, Calm Eyes: Yes: EOM Intact HENT: Yes: Atraumatic Neck: Yes: Supple Cardiovascular: Yes: Regular Rate and Rhythm Lungs: Clear to auscultation - Abdominal Exam/OB Number of Fetuses: Single Presentation: Vertex Contractions: Yes Regularity: Irritability Intensity: Unaware Category: I Accelerations: Uniform Decelerations: None - Vaginal Exam/OB Dilatation (cm): 3 Effacement (%): 70 Amniotic Membrane Status: Ruptured Presentation: Vertex/Position Station: -2 Hemorrhage Risk Assessment - Risk Factors Medium Risk Factors: Yes: None High Risk Factors: Yes: None Risk Score: 1 Risk Level: Medium Risk Problem List - Problems (1) PROM (premature rupture of membranes) Code(s): O42.90 - ADILENE ROM, 7TH0 BETW RUPT & ONST LABR, UNSP WEEKS OF GEST Assessment/Plan 23 y/o with SIUP at 38.3 weeks, PROM Admit to L&D ambulate if no contractions by this evening, to start pitocin GBS negative
[2019-03-02 16:12] VITALS: BMI 28.7
[2019-03-02 17:13] LABS: INR 0.94 (0.83-1.09); PROTHROMBIN TIME (PATIENT) 11.1 SEC (9.7-13.0)
[2019-03-02 17:15] LABS: BASO % 0.1 % (0-2.0); EOS % 0.3 % (0-4.5); HEMATOCRIT 33.6 % (32.4-45.2); HEMOGLOBIN 11.1 GM/dL (10.7-15.3); MCH 27.5 pg (25.7-33.7); MEAN CELL VOLUME 83.3 fl (80-96); MEAN PLT VOLUME 9.6 fl (7.5-11.1); MONO % 6.1 % (3.8-10.2); NEUT % 71.5 % (42.8-82.8); PLATELET COUNT 191 K/MM3 (134-434); RBC 4.04 M/mm3 (3.60-5.2); RDW 13.1 % (11.6-15.6); WHITE BLOOD COUNT 8.2 K/mm3 (4.0-10.0)
[2019-03-02 17:16] LABS: ACTIVATED PTT 27.4 SECONDS (25.2-36.5)
[2019-03-02 17:18] LABS: BLOOD UREA NITROGEN 3.3 mg/dL (7-18); CREATININE 0.5 mg/dL (0.55-1.3); POTASSIUM 4.1 mmol/L (3.5-5.1)
[2019-03-02] MEDS: ELECTROLYTE-148 SOLN 1,000 ML IV SCH ×2 (18:00→22:14)
[2019-03-02] MEDS ORDERED: AMPICILLIN - 2 GM in SODIUM CHLORIDE 100 ML IVPB ONE (19:15)
[2019-03-02] MEDS ORDERED: AMPICILLIN SODIUM 2 GM VIAL ONE (19:26)
[2019-03-02] MEDS: AMPICILLIN - 1 GM in SODIUM CHLORIDE 100 ML IVPB SCH ×2 (19:32→23:15)
[2019-03-02] MEDS ORDERED: AMPICILLIN SODIUM 1 GM VIAL ONE (23:04)
[2019-03-02] MEDS ORDERED: OXYTOCIN 30 UNITS in 0.9% NS 30 UNIT/500 ML INFUS.BAG IVPB ONE (23:22)
[2019-03-03] MEDS ORDERED: OXYTOCIN 30 UNITS in 0.9% NS 30 UNIT/500 ML INFUS.BAG IVPB SCH (00:30)
[2019-03-03] MEDS ORDERED: BUTORPHANOL TARTRATE 1 MG/ML VIAL ONE ×4 (02:47→08:52)
[2019-03-03] MEDS ORDERED: PROMETHAZINE HCL 25 MG/1 ML VIAL ONE ×2 (02:48→08:52)
[2019-03-03] MEDS ORDERED: AMPICILLIN SODIUM 1 GM VIAL ONE ×4 (02:48→19:38)
[2019-03-03] MEDS: AMPICILLIN - 1 GM in SODIUM CHLORIDE 100 ML IVPB SCH ×5 (03:30→19:45)
[2019-03-03] MEDS ORDERED: PROMETHAZINE HCL 25 MG/1 ML VIAL IVPUSH ONE (08:54)
[2019-03-03] MEDS ORDERED: BUTORPHANOL TARTRATE 1 MG/ML VIAL IVPB ONE (08:54)
--- NOTE | 2019-03-03 08:54 | PN ---
Ante-Partal Exam - Subjective Vital Signs: Vital Signs Temperature 98.2 F 03/03/19 08:00 Pulse Rate 74 03/03/19 08:00 Respiratory Rate 18 03/03/19 08:00 Blood Pressure 135/79 03/03/19 08:00 O2 Sat by Pulse Oximetry (%) Bleeding: No Headache: No Visual changes: No Right upper quadrant pain: No Pain (scale 1-10): 5 - Contractions Contractions: Yes Regularity: Regular Intensity: Moderate - Exam during Labor Heart Rate: 125 Variability: Moderate Category: I Monitor Accelerations: Present Monitor Decelerations: None Exam: Vaginal Dilatation (cm): 3-4 Effacement (%): 80 Amniotic Membrane Status: Ruptured Presentation: Vertex Station: -2 - Assessment/Plan Assessment/Plan: Continue active management continue pitocin ampicillin for ROM> 18 hours gbs negative repeat stadol/phenergan epidural prn
[2019-03-03] MEDS ORDERED: FENTANYL/BUPIVACAINE/NS/PF - PCEA - 50 ML DISP.SYRIN EP ONE ×3 (11:31→18:36)
[2019-03-03] MEDS ORDERED: NALOXONE HCL 0.4 MG/ML VIAL IVPUSH PRN (14:56)
[2019-03-03] MEDS ORDERED: FENTANYL/BUPIVACAINE/NS/PF - PCEA - 50 ML DISP.SYRIN EP SCH (15:00)
[2019-03-03] MEDS ORDERED: OXYTOCIN 20 UNITS in 0.9% NS 20 UNIT/1,000 ML INFUS.BAG IV ONE (16:29)
--- NOTE | 2019-03-03 18:53 | PN ---
Ante-Partal Exam - Subjective Subjective: comfortable with epidural Vital Signs: Vital Signs Temperature 98.0 F 03/03/19 18:22 Pulse Rate 82 03/03/19 18:43 Respiratory Rate 18 03/03/19 18:43 Blood Pressure 128/70 03/03/19 18:43 O2 Sat by Pulse Oximetry (%) 100 03/03/19 18:15 Headache: No Visual changes: No Right upper quadrant pain: No - Contractions Contractions: Yes Regularity: Regular Intensity: Mod/Strong - Exam during Labor Variability: Moderate Category: I Monitor Accelerations: Present Monitor Decelerations: None Exam: Vaginal Dilatation (cm): 6.5 Amniotic Membrane Status: Ruptured Presentation: Vertex Station: 0 (exam per nursing) - Assessment/Plan Assessment/Plan: continue pitocin anticipate
[2019-03-03] MEDS ORDERED: LIDOCAINE HCL 1% PRESERVATIVE FREE - 30ML VIAL ONE (19:55)
--- NOTE | 2019-03-03 20:46 | PN ---
Progress Note, Labor Vaginal Exam #4 Labor Exam Date: 03/03/19 Labor Exam Time: 19:50 Dilatation: fully Amniotic Membrane Status: Ruptured Presentation: Vertex/Position Station: +3 (Excellent epidural. Start pushing.)
--- NOTE | 2019-03-03 20:50 | PN ---
Delivery - Delivery Vaginal Delivery: No Problems (Excellent delivery. Mother is happy. Delayed cord clamping. Encouraged to bf. Epidural catheter [id number] intact.), Spontaneous Type of Anesthesia: Epidural Episiotomy/Laceration: Right Mediolateral (small epis.) Delivery, Single - Stages of Labor Date of Delivery: 03/03/19 Time of Delivery: 20:20 Date Placenta Delivered: 03/03/19 Time Placenta Delivered: : Placenta: Yes: Spontaneous, Normal Configuration - Condition of Infant Perianesthesia Rn/Refrigerator Car Icer Present: No Infant Gender: Female Position: Left, OA (NVSD. Apgars 9 and 9.) - Feeding Plan Initial Plan: Elected not to breastfeed exclusively throughout hospitalization
[2019-03-03] MEDS ORDERED: WITCH HAZEL 50% (TUCKS) 40 PAD/JAR PAD TP PRN (22:31)
[2019-03-03] MEDS ORDERED: BENZOCAINE 20% 57 GM BOTTLE TP PRN (22:31)
[2019-03-03] MEDS ORDERED: METHYLERGONOVINE MALEATE 0.2 MG/1 ML AMP IM PRN (22:31)
[2019-03-03] MEDS ORDERED: BISACODYL 10 MG SUPP.RECT RC PRN (22:31)
[2019-03-04] MEDS: IBUPROFEN 600 MG TABLET (FP) PO PRN ×4 (01:44→21:32)
[2019-03-04] MEDS: ACETAMINOPHEN 325 MG TABLET (FP) PO PRN ×4 (01:45→21:31)
[2019-03-04 09:17] LABS: BASO % 0.3 % (0-2.0); EOS % 0.1 % (0-4.5); HEMATOCRIT 30.8 % (32.4-45.2); LYMPH % 16.6 % (8-40); MCH 27.2 pg (25.7-33.7); MCHC 32.5 g/dl (32.0-36.0); MEAN CELL VOLUME 83.8 fl (80-96); MEAN PLT VOLUME 9.3 fl (7.5-11.1); MONO % 8.3 % (3.8-10.2); NEUT % 74.7 % (42.8-82.8); PLATELET COUNT 177 K/MM3 (134-434); RBC 3.68 M/mm3 (3.60-5.2); RDW 13.4 % (11.6-15.6); WHITE BLOOD COUNT 11.3 K/mm3 (4.0-10.0)
--- NOTE | 2019-03-04 13:00 | PN ---
Post Progress Note - Subjective Subjective: Doing well, no complaints. Tolerating diet, ambulating, voiding, passing flatus. VB minimal. Type of Delivery: Vital Signs: Vital Signs Temperature 98.4 F 03/04/19 09:00 Pulse Rate 79 03/04/19 09:00 Respiratory Rate 18 03/04/19 09:00 Blood Pressure 117/68 03/04/19 09:00 O2 Sat by Pulse Oximetry (%) 100 03/03/19 22:15 Uterus: Yes: Fundus Firm Abdomen/GI: Yes: Abdomen soft Lochia: Yes: Rubra Lochia, amount: Small Extremities: Yes: Calves non-tender. No: Edema Perineum: Yes: Episiotomy Activity: Ambulating - Labs Labs: CBC WBC 11.3 K/mm3 (4.0-10.0) H 03/04/19 08:52 RBC 3.68 M/mm3 (3.60-5.2) 03/04/19 08:52 Hgb 10.0 GM/dL (10.7-15.3) L 03/04/19 08:52 Hct 30.8 % (32.4-45.2) L 03/04/19 08:52 MCV 83.8 fl (80-96) 03/04/19 08:52 MCH 27.2 pg (25.7-33.7) 03/04/19 08:52 MCHC 32.5 g/dl (32.0-36.0) 03/04/19 08:52 RDW 13.4 % (11.6-15.6) 03/04/19 08:52 Plt Count 177 K/MM3 (134-434) 03/04/19 08:52 MPV 9.3 fl (7.5-11.1) 03/04/19 08:52 Absolute Neuts (auto) 8.4 K/mm3 (1.5-8.0) H 03/04/19 08:52 Neutrophils % 74.7 % (42.8-82.8) 03/04/19 08:52 Lymphocytes % 16.6 % (8-40) D 03/04/19 08:52 Monocytes % 8.3 % (3.8-10.2) 03/04/19 08:52 Eosinophils % 0.1 % (0-4.5) 03/04/19 08:52 Basophils % 0.3 % (0-2.0) 03/04/19 08:52 Nucleated RBC % 0 % (0-0) 03/04/19 08:52 Problem List - Problems (1) PROM (premature rupture of membranes) Code(s): O42.90 - ADILENE ROM, 7TH0 BETW RUPT & ONST LABR, UNSP WEEKS OF GEST (2) Vaginal delivery Code(s): O80 - ENCOUNTER FOR FULL-TERM UNCOMPLICATED DELIVERY Assessment/Plan PPD#1 s/p normal Hb 10.0 regular diet PO pain meds routine care
[2019-03-04] MEDS ORDERED: SENNOSIDES/DOCUSATE COMBO (SENNA PLUS) TABLET (UD) PO PRN (22:00)
--- NOTE | 2019-03-05 04:28 | DS ---
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 Vital Signs: Vital Signs Temperature 98.1 F 03/04/19 22:00 Pulse Rate 77 03/04/19 22:00 Respiratory Rate 18 03/04/19 22:00 Blood Pressure 129/73 03/04/19 22:00 O2 Sat by Pulse Oximetry (%) 100 03/03/19 22:15 Constitutional: Yes: Well Nourished, No Distress Eyes: Yes: Conjunctiva Clear Neck: Yes: Trachea Midline Cardiovascular: Yes: Regular Rate and Rhythm Respiratory: Yes: Regular Gastrointestinal: Yes: Normal Bowel Sounds ....Post : Yes: Uterus firm, Uterus non-tender Neurological: Yes: Alert, Oriented Psychiatric: Yes: Alert, Oriented Labs: CBC, BMP 03/04/19 08:52 03/02/19 16:10 Delivery - Delivery Vaginal Delivery: No Problems (Excellent delivery. Mother is happy. Delayed cord clamping. Encouraged to bf. 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 Labor induced with pitocin and pt underwent normal uncomplicated on 03/04/19. Her post course was unremarkable and she was discharged home on post day 2. Condition: Good - Instructions Diet, Activity, Other Instructions: Physical activity Resume your normal everyday activity as tolerated but no heavy lifting or strenuous exercise until seen by your surgeon. You may walk unlimited amounts and climb stairs. You may resume driving the car when you feel safe and comfortable behind the wheel. No sexual activity as instructed. Wound care If there are tapes on the skin leave them in place. They will peel off in the next 7 to 10 days. Do Not Peel them off. You may shower the day after surgery. If there are tapes present on the skin, you may shower over them. Diet There are no dietary restrictions. Eat healthy, high-fiber foods. Drink 6 to 8 glasses of liquid each day. This will assist in keeping your bowels regular. Pain management You may take Tylenol or or Ibuprofen (for example, Motrin, Advil etc.) for mild pain. If any prescription pain medication is sent to your pharmacy for severe pain, please take as directed. Call MD for any of the following: Severe pain not relieved by medication Fever of 101 or higher Excessive bleeding or drainage on dressing Inability to urinate Disposition: HOME - Home Medications Comprehensive Discharge Medication List: Ambulatory Orders Ferrous Sulfate [Feosol] 325 mg PO TID 02/03/19 Vits96/Iron Fum/Folic [ Tablet] 1 each PO DAILY 02/03/19 Ibuprofen [Motrin -] 600 mg PO QID PRN #28 tablet 03/05/19
[2019-03-05] MEDS: ACETAMINOPHEN 325 MG TABLET (FP) PO PRN ×2 (06:31→11:45)
[2019-03-05] MEDS: IBUPROFEN 600 MG TABLET (FP) PO PRN ×2 (06:32→11:44)
[2019-03-05 09:12] VITALS: BP 131/75; PULSE 59; TEMP 98.3
== END 2019-03-05 14:00 | disposition home or self-care (01) | DRG 807 ==
LOC: JDEL 14:22 → JLDR 15:00 → J3W 03-03 22:35
PROVIDERS: ADMIT Obstetrics & Gynecology; ATTEND Obstetrics & Gynecology
PROC: 10E0XZZ Delivery of Products of Conception, External Approach (ICD-10-PCS; principal; 2019-03-03)
PROC: 0W8NXZZ Division of Female Perineum, External Approach (ICD-10-PCS; 2019-03-03)
PROC: 3E0R3BZ Introduction of Anesthetic Agent into Spinal Canal, Percutaneous Approach (ICD-10-PCS; 2019-03-03)
DX: O42.02 Full-term premature rupture of membranes, onset of labor within 24 hours of rupture (principal); Z37.0 Single live birth; Z3A.38 38 weeks gestation of pregnancy
CPT/HCPCS: 36415; 59409; 80048; 85025; 85610; 85730; 86593; 86850; 86900; 86901